=== PATIENT | female | born 1990 | race Hispanic/Latino ===

== ENCOUNTER 2024-03-20 18:18 | Emergency (ER) | payer SELFPAY ==
[2024-03-20 18:19] VITALS: BP 139/96; PULSE 136; RESP 19; TEMP 37; O2SAT 99; BMI 31.9
--- NOTE | 2024-03-20 19:06 | RAD_ITS ---
PROCEDURE: CHEST 1 VIEW (PORTABLE) REASON FOR EXAM: Chest pain. TECHNIQUE: Frontal view of the chest. COMPARISON: None. FINDINGS: The cardiac and mediastinal contours are normal. The lungs are clear. RAD/Chest 1 View (Portable) IMPRESSION: No acute cardiopulmonary abnormalities. Reading Location: [id number]
--- NOTE | 2024-03-20 19:06 | EKG12_ITS ---
Test Reason : CP Blood Pressure : */* mmHG Vent. Rate : 118 BPM Atrial Rate : 118 BPM P-R Int : 112 ms QRS Dur : 76 ms QT Int : 334 ms P-R-T Axes : 53 -2 34 degrees QTcB Int : 468 ms Sinus tachycardia Otherwise normal ECG Confirmed by DEON HANSON, LASHA ([id number]), editorial writer LISA FOX ([id number]) on 03/21/2024 8:53:33 AM Referred By: TL Confirmed By: LASHA CHAVARRIA MD
--- NOTE | 2024-03-20 19:51 | EX.ED.DYSGE1 ---
HPI <THIERRY Mccray - Last Filed: 03/20/24 22:09> History of Present Illness Chief Complaint: Chest Pain Narrative Narrative: Patient is a 33-year-old female that is [place]an-speaking that takes medications such as control, ibuprofen as needed, who presents to the emergency department with chest pain that came on all of a sudden, shortness of breath as well as nausea and vomiting. This started while she was eating. She is here with her who speaks for her. Patient states she does have some abdominal cramps because she is on her menstrual cycle. Patient did recently drive from [place] last weekend, however patient denies any specific shortness of breath. Patient denies any cardiac history. Patient that she does feel slightly improved. PFSH <THIERRY Mccray - Last Filed: 03/20/24 22:09> PFS Medical History no medical history Allergy/AdvReac Type Severity Reaction Status Date / Time No Known Allergies Allergy Verified 03/20/24 18:18 Social History Smoking Status: Never smoker ROS <THIERRY Mccray - Last Filed: 03/20/24 22:09> ROS ED ROS Narrative Constitutional: Negative for fever, chills, weight loss, weakness Eyes: Negative for vision loss, vision change, double vision ENT: Negative for any sore throat, ear pain, congestion Cardiovascular: Positive for any chest pain, tightness, palpitations Respiratory: Negative for any cough, sputum production, hemoptysis, dyspnea, dyspnea on exertion, orthopnea Gastrointestinal: Negative for any abdominal pain,diarrhea, constipation, blood in stool, blood in vomit. Positive for nausea and vomiting : Negative for any urinary frequency, dysuria, retention, blood in urine Muscle skeletal: Negative for any neck pain, back pain Neurological: Negative for any headache, syncope, dizziness Skin: Negative for any rashes, itching, abrasions, lacerations Psychiatric: Negative for any depression, anxiety, stress, suicidal ideation, homicidal ideation Hematologic: Negative for any excessive bruising, easy bleeding EXAM <THIERRY Mccray - Last Filed: 03/20/24 22:09> Physical Exam Narrative Exam Narrative: Vital signs reviewed. Patient on my initial evaluation appeared to be calm, patient's vital signs normalized. HEET: Head normocephalic atraumatic, TMs clear bilaterally. Posterior pharynx is clear, moist mucous membranes. Nares clear bilaterally. Neck: Supple with no lymphadenopathy or tenderness. No signs of meningismus. Cardiac: Regular rate and rhythm no murmurs gallops or rubs, equal peripheral pulses bilaterally. Respiratory: Lungs clear to auscultation bilaterally. No chest tenderness. Abdomen: Soft, nontender, nondistended. No abdominal bruit or pulsatile masses. No hepatosplenomegaly Extremities: No peripheral edema, no signs of gross trauma or deformity. Active full range of motion of all extremities. Neuro: Cranial nerves II through XII intact, no focal neurological deficits. Skin: Clean dry and intact with no rash, purpura, petechiae, vesicles or pustules. Backs/flank: No CVA tenderness, no midline spinal tenderness, no deformity. Psych: Normal mood and affect. No SI, HI or acute psychosis. Const Vital Signs: 03/20/24 18:19 03/20/24 20:33 03/20/24 20:33 Temperature 98.6 F Temperature Source Temporal Pulse Rate 136 H Respiratory Rate 19 H Respiratory Effort Normal Non-Labored Blood Pressure 139/96 H Blood Pressure Mean 110 Pulse Ox 99 Oxygen Delivery Method Room Air Room Air 03/20/24 22:17 Temperature Temperature Source Pulse Rate 78 Respiratory Rate 16 Respiratory Effort Blood Pressure 107/62 Blood Pressure Mean 77 Pulse Ox 99 Oxygen Delivery Method Room Air <Dr. Lester Nagy DO - Last Filed: 03/20/24 22:21> Physical Exam Const Vital Signs: 03/20/24 18:19 03/20/24 20:33 03/20/24 20:33 Temperature 98.6 F Temperature Source Temporal Pulse Rate 136 H Respiratory Rate 19 H Respiratory Effort Normal Non-Labored Blood Pressure 139/96 H Blood Pressure Mean 110 Pulse Ox 99 Oxygen Delivery Method Room Air Room Air 03/20/24 22:17 Temperature Temperature Source Pulse Rate 78 Respiratory Rate 16 Respiratory Effort Blood Pressure 107/62 Blood Pressure Mean 77 Pulse Ox 99 Oxygen Delivery Method Room Air [facility] <THIERRY Mccray - Last Filed: 03/20/24 22:09> [facility] Lab Data Labs: Laboratory Results - last 24 hr 03/20/24 20:00 WBC 13.0 H RBC 4.83 Hgb 13.1 Hct 39.5 MCV 81.8 MCH 27.1 MCHC 33.2 RDW Std Deviation 40.6 RDW Coeff of Noemy 13.6 Plt Count 300 MPV 10.6 Immature Gran % (Auto) 0.200 Neut % (Auto) 71.2 H Lymph % (Auto) 20.2 [place] % (Auto) 7.0 Eos % (Auto) 0.7 Baso % (Auto) 0.7 Absolute Neuts (auto) 9.2 H Absolute Lymphs (auto) 2.62 Nucleated RBC % 0 D-Dimer Quant (PE/DVT) 1.09 H* Sodium 139 Potassium 3.6 Chloride 105 Carbon Dioxide 29.0 Anion Gap 5 BUN 12 Creatinine 0.92 Estim Creat Clear Calc 91.40 Est GFR (MDRD) Af Amer 90 Est GFR (MDRD) Non-Af 75 BUN/Creatinine Ratio 13.0 Glucose 107 H Calcium 9.3 Total Bilirubin 0.30 Direct Bilirubin 0.10 AST 24 ALT 56 Alkaline Phosphatase 83 Troponin I High Sens < 3 L Total Protein 8.2 Albumin 3.8 Globulin 4.4 H Lipase 34 Serum , Qual NEGATIVE Radiography Diagnostic Testing: Clinical Impression(s) from Imaging Studies Chest X-Ray 03/20/24 19:06 IMPRESSION: No acute cardiopulmonary abnormalities. Reading Location: [facility] Chest CTA 03/20/24 21:00 IMPRESSION: No evidence of pulmonary embolism to the segmental level. No acute chest abnormality. Dextroscoliosis. One or more dose reduction techniques were used (e.g., Automated exposure control, adjustment of the mA and/or kV according to patient size, use of iterative reconstruction technique). Reading Location: [facility] Treatment and Re-Evaluation :: Differential diagnosis includes however is not limited to: ACS, VA, anxiety, viral gastroenteritis, pulmonary embolus, A-fib, SVT Patient on my initial evaluation appears to be improved from previous triage vital signs. Presenting to the emergency department for sudden onset of chest pain, nausea and vomiting. Secondary the patient's tachycardia, chest pain, recently traveled from [place] to [place], patient received a full cardiac workup including 2 troponins, CBC, BMP, liver, lipase as well as a dimer. Chest x-ray will be obtained. Patient be given IV fluids, Zofran as well as Toradol. All radiologic examinations were read, reviewed by the emergency department attending. From these reads, a plan of care will be put in place. Patient CBC shows a slight leukocytosis with a white blood count 13.0. Patient's chemistries were unremarkable, troponin was less than 3, patient's serum was negative. Dimer was elevated at 1.09. Secondary this finding, CTA of the chest need to be obtained. However the chest x-ray did show no acute cardiopulmonary abnormality. CTA will be obtained to ensure there is no PE. <Dr. Lester Nagy, DO - Last Filed: 03/20/24 22:21> [facility] Lab Data Labs: Laboratory Results - last 24 hr 03/20/24 20:00 WBC 13.0 H RBC 4.83 Hgb 13.1 Hct 39.5 MCV 81.8 MCH 27.1 MCHC 33.2 RDW Std Deviation 40.6 RDW Coeff of Noemy 13.6 Plt Count 300 MPV 10.6 Immature Gran % (Auto) 0.200 Neut % (Auto) 71.2 H Lymph % (Auto) 20.2 [place] % (Auto) 7.0 Eos % (Auto) 0.7 Baso % (Auto) 0.7 Absolute Neuts (auto) 9.2 H Absolute Lymphs (auto) 2.62 Nucleated RBC % 0 D-Dimer Quant (PE/DVT) 1.09 H* Sodium 139 Potassium 3.6 Chloride 105 Carbon Dioxide 29.0 Anion Gap 5 BUN 12 Creatinine 0.92 Estim Creat Clear Calc 91.40 Est GFR (MDRD) Af Amer 90 Est GFR (MDRD) Non-Af 75 BUN/Creatinine Ratio 13.0 Glucose 107 H Calcium 9.3 Total Bilirubin 0.30 Direct Bilirubin 0.10 AST 24 ALT 56 Alkaline Phosphatase 83 Troponin I High Sens < 3 L Total Protein 8.2 Albumin 3.8 Globulin 4.4 H Lipase 34 Serum , Qual NEGATIVE Radiography Diagnostic Testing: Clinical Impression(s) from Imaging Studies Chest X-Ray 03/20/24 19:06 IMPRESSION: No acute cardiopulmonary abnormalities. Reading Location: [id number] Chest CTA 03/20/24 21:00 IMPRESSION: No evidence of pulmonary embolism to the segmental level. No acute chest abnormality. Dextroscoliosis. One or more dose reduction techniques were used (e.g., Automated exposure control, adjustment of the mA and/or kV according to patient size, use of iterative reconstruction technique). Reading Location: [facility] Treatment and Re-Evaluation :: Differential diagnosis includes however is not limited to: ACS, VA, anxiety, viral gastroenteritis, pulmonary embolus, A-fib, SVT Patient on my initial evaluation appears to be improved from previous triage vital signs. Presenting to the emergency department for sudden onset of chest pain, nausea and vomiting. Secondary the patient's tachycardia, chest pain, recently traveled from [place] to [place], patient received a full cardiac workup including 2 troponins, CBC, BMP, liver, lipase as well as a dimer. Chest x-ray will be obtained. Patient be given IV fluids, Zofran as well as Toradol. All radiologic examinations were read, reviewed by the emergency department attending. From these reads, a plan of care will be put in place. Patient CBC shows a slight leukocytosis with a white blood count 13.0. Patient's chemistries were unremarkable, troponin was less than 3, patient's serum was negative. Dimer was elevated at 1.09. Secondary this finding, CTA of the chest need to be obtained. However the chest x-ray did show no acute cardiopulmonary abnormality. CTA will be obtained to ensure there is no PE. Attending note: I have personally performed a face to face assessment of the patient and have reviewed the MARIALUISA note. I personally made/approved the management plan and take responsibility for the patient management. I performed a substantive portion of the visit including all aspects of the following. My prajapati findings include: Here with significant other translating. Chest pain with nausea and vomiting. Came from [place] by car 2 days ago. No leg pain or cramping. Patient evaluated after workup by myself, symptom-free. Heart was regular lungs are clear. No calf tenderness. Her EKG with sinus tachycardia. Cardiac workup negative. Troponin less than 3, per hospital algorithm no cardiac concerns. D-dimer was elevated, subsequent CTA chest negative for any PE. Heart rate improved to 78 on reevaluation. Symptoms improved. She is given follow-up as an outpatient with strict return precautions. All questions were answered. Discharge Plan Triage Chief Complaint: Chest Pain ED Midlevel Provider: Freddy Lyons ED Provider: Lester Nagy Dx/Rx/DC Orders Clinical Impression: Chest pain, History of tobacco use Instructions: ED Chest Pain, Uncertain Cause, ED How to Quit Smoking Primary Care Provider: Care Physician,No Primary Referrals: NOT,DEFINED [Non-Staff] - Adriana Van [facility], [[facility]] - 3-5 Days Activity Restrictions/Additional Instructions: Cardiac workup negative. D-dimer elevated, CTA chest negative for PE. Follow-up with Dr. Donovan to you. If symptoms recur and worsens, return to the ED for reevaluation. Print Language: Ug[place]an Disposition Disposition: Home, Self Care
[2024-03-20 20:06] LABS: Absolute Lymphocyte Count 2.62 X10^3/uL (0.83-4.51); Absolute Neutrophil Count 9.2 X10^3/uL (2.0-7.7); Basophil# 0.09 X10^3/uL; Basophil% 0.7 % (0-1); Eosinophil# 0.09 X10^3/uL; Eosinophils% 0.7 % (0-5); Hematocrit 39.5 % (37-47); Hemoglobin 13.1 g/dL (12.0-15.0); Lymphocyte # 2.62 X10^3/ul (0.83-4.51); Lymphocyte % 20.2 % (19-41); Mean Corp Hgb Conc 33.2 g/dL (32-36); Mean Corpuscular Hgb 27.1 pg (27.0-32.0); Mean Corpuscular Volume 81.8 fL (81-99); Mean Platelet Vol. 10.6 fl (6.2-12.0); Monocyte# 0.91 X10^3/uL; NRBC Flagged by Analyzer 0 % (0-5); Neutrophil # 9.21 X10^3/uL (2.7-7.7); Neutrophil % 71.2 % (47-70); Platelet Count 300 K/mm3 (150-450); RBC Distribution Width CV 13.6 % (11.6-14.6); RBC Distribution Width SD 40.6 fl (35.1-43.9); Red Blood Count 4.83 M/mm3 (4.2-5.4)
[2024-03-20] MEDS: Ondansetron 4 MG/2 ML Vial IV (20:30)
[2024-03-20] MEDS: Ketorolac 15 MG/ML Vial IV (20:30)
[2024-03-20] MEDS: 0.9% Normal Saline (1000mL) 1,000 ML 999 ML IV (20:33)
[2024-03-20 20:34] LABS: Internal QC Validated? YES +Cl - CLEAR BKGD; Pregnancy, Serum, hCG Quali. NEGATIVE Negative
[2024-03-20 20:42] LABS: AST(SGOT) 24 U/L (15-37); Alanine Aminotransfer ALT/SGPT 56 U/L (13-56); Albumin, Serum 3.8 g/dL (3.2-5.0); Alkaline Phosphatase 83 U/L (45-117); Anion Gap 5 (5-15); BUN 12 mg/dL (7-18); Calcium,Total 9.3 mg/dL (8.5-10.1); Chloride 105 mmol/L (98-107); Creatinine, Serum 0.92 mg/dL (0.55-1.02); EST Glomerular Filtration Rate 75 mL/min (>60); Est Glom Filt Rate - Afr Amer 90 mL/min (>60); Globulin 4.4 g/dL (2.2-4.2); Glucose 107 mg/dL (74-106); Lipase 34 U/L (13-75); Potassium 3.6 mmol/L (3.5-5.1); Protein, Total 8.2 g/dL (6.4-8.2); Sodium Level 139 mmol/L (136-145); Troponin-I HS (w/2H Reflex) < 3 pg/mL (3.0-54.0)
[2024-03-20 20:56] LABS: D-Dimer Quantitative (DVT/PE) 1.09 FEU/ug/m (0.27-0.49)
--- NOTE | 2024-03-20 21:00 | CT_ITS ---
PROCEDURE: CTA CHEST W/WO CONTRAST REASON FOR EXAM: Chest pain; swelling; vomiting; tachycardia. TECHNIQUE: CTA imaging of the chest with intravenous contrast. 3D reconstructions. COMPARISON: None. FINDINGS: Hardware: None. Lymph nodes: No mediastinal hilar or axillary lymphadenopathy. Heart: Normal heart size. No pericardial effusion. RV/LV Diameter Ratio: N/A Thoracic Aorta: No thoracic aortic aneurysm or dissection. Pulmonary Vessels: No evidence of acute pulmonary emboli through the major segmental branches. Subsegmental evaluation is limited due to contrast timing and motion. Most Proximal Level of Embolus (if embolus present): N/A Lungs and Airways: The lungs are normally expanded and clear. Pleura: No pleural effusion. No pneumothorax. Upper Abdomen: Visualized portions of the upper abdominal viscera are unremarkable. Bones: Dextroscoliosis. CT/CTA Chest W/WO Contrast IMPRESSION: No evidence of pulmonary embolism to the segmental level. No acute chest abnormality. Dextroscoliosis. One or more dose reduction techniques were used (e.g., Automated exposure contr ol, adjustment of the mA and/or kV according to patient size, use of iterative reconstruction technique). Reading Location: [id number]
[2024-03-20 22:03] LABS: Reflex Troponin-HS? (from REC) Y
[2024-03-20 22:17] VITALS: BP 107/62; PULSE 78; RESP 16; O2SAT 99
[2024-03-20 22:28] VITALS: BP 107/62; PULSE 76; RESP 21; TEMP 36.7; O2SAT 95
== END 2024-03-20 22:28 | disposition home or self-care (01) ==
PROVIDERS: Nurse Practitioner; Emergency Provider Emergency Medicine; Visit Provider Emergency Medicine
DX: R07.9 Chest pain, unspecified (principal); R11.2 Nausea with vomiting, unspecified; R06.02 Shortness of breath; R79.1 Abnormal coagulation profile; R00.0 Tachycardia, unspecified; Z79.3 Long term (current) use of hormonal contraceptives
CPT/HCPCS: 71045; 71275; 80048; 80076; 83690; 84484; 84703; 85025; 85379; 93005; 96361; 96374; 96375; 99283; Q9967; A4216; J2405